=== PATIENT | male | born 1935 | race Caucasian/White ===

== ENCOUNTER 2018-02-25 11:57 | Day surgery (SDC) | payer MEDICARE, OTHER ==
[2018-02-25] MEDS: NS 1,000 ML IV (08:00)
[2018-02-25] MEDS ORDERED: PROPOFOL 200 MG/20 ML VIAL As Ordered (13:18)
[2018-02-25] MEDS ORDERED: LIDOCAINE 2% INJ 100 MG/5 ML SDV (FOR ANES.) As Ordered (13:18)
== END 2018-02-25 14:54 | disposition home or self-care (01) ==
LOC: M OPP 11:57
DX: Z12.11 Encounter for screening for malignant neoplasm of colon (principal); Z86.010 Personal history of colon polyps; D12.0 Benign neoplasm of cecum; D12.2 Benign neoplasm of ascending colon; D12.4 Benign neoplasm of descending colon; K64.0 First degree hemorrhoids; K57.30 Diverticulosis of large intestine without perforation or abscess without bleeding; I10 Essential (primary) hypertension; E78.5 Hyperlipidemia, unspecified; M19.90 Unspecified osteoarthritis, unspecified site; N40.1 Benign prostatic hyperplasia with lower urinary tract symptoms; Z85.828 Personal history of other malignant neoplasm of skin; J45.909 Unspecified asthma, uncomplicated; R06.83 Snoring; Z79.82 Long term (current) use of aspirin; Z79.899 Other long term (current) drug therapy; Z83.71 Family history of colonic polyps
CPT/HCPCS: 45385